=== PATIENT | female | born 1995 | race Caucasian/White ===

== ENCOUNTER 2018-01-23 07:23 | Day surgery (SDC) | payer BC ==
[~2018-01-23 07:23] MED LIST: CLINDAMYCIN 600 MG/D5W (PMX) 50 ML IVPB; LACTATED RINGER'S 1,000 ML IV*
[2018-01-23] MEDS ORDERED: MIDAZOLAM 1 MG/ML 2 ML INJ (09:36)
[2018-01-23] MEDS ORDERED: CLINDAMYCIN 600 MG/D5W (PMX) 50 ML IVPB (09:46)
[2018-01-23] MEDS ORDERED: PROPOFOL 20 ML (09:48)
[2018-01-23] MEDS ORDERED: LIDOCAINE 2% (SDV) 5 ML INJ (09:48)
[2018-01-23] MEDS ORDERED: FENTAnyl 50 MCG/ML VIAL (10:04)
[2018-01-23] MEDS ORDERED: ONDANSETRON 4 MG INJ (10:05)
[2018-01-23] MEDS ORDERED: MEPERIDINE 25 MG INJ (10:40)
[2018-01-23] MEDS ORDERED: HYDROmorphONE 1 MG/5 ML IV SYRINGE IV (11:00)
[2018-01-23] MEDS: MEPERIDINE 25 MG INJ IV (11:06)
== END 2018-01-23 12:19 | disposition home or self-care (01) ==
LOC: SDS 07:23
DX: T84.84XA Pain due to internal orthopedic prosthetic devices, implants and grafts, initial encounter (principal); M70.51 Other bursitis of knee, right knee; Y83.8 Other surgical procedures as the cause of abnormal reaction of the patient, or of later complication, without mention of misadventure at the time of the procedure
CPT/HCPCS: 20680; 73560; 84703